=== PATIENT | male | born 1960 | race Caucasian/White ===

== ENCOUNTER 2017-01-30 13:50 | Emergency (ER) | payer OTHER ==
[~2017-01-30] VITALS: Ht 188 cm; Wt 137.2 kg
[~2017-01-30 13:50] MED LIST: BETH25TA PO; CIAL20TA PO; HUMA100I SC; HYDR-2768 PO; HYZA100T2 PO; LANTUSP SQ; MECL-62 PO; METO10TA PO
[2017-01-30 14:15] VITALS: BP 132/87; PULSE 94; RESP 16; TEMP 98.7; O2SAT 96
[2017-01-30] MEDS ORDERED: MECL-62 PO (14:28)
[2017-01-30] MEDS ORDERED: LOSA100T3 PO (14:28)
[2017-01-30] MEDS ORDERED: CIAL20TA PO (14:28)
[2017-01-30] MEDS ORDERED: HUMALOG SQ (14:28)
[2017-01-30] MEDS ORDERED: LEVEMIR SQ (14:28)
--- NOTE | 2017-01-30 14:29 | PD ---
HPI Chief Complaint: Skin Problem Time Seen by Provider: 14:25 Travel History International Travel<30 days: No Contact w/Intl Traveler<30days: No Traveled to known affect area: No History of Present Illness HPI Patient comes in for evaluation of skin infection he first noticed 2 days ago. Patient states that he is uncertain what caused it and he just noticed it when he reached down feeling something on his leg. Patient reports associated pain with this that is a burning/stretching pain. Denies any radiation. Denies anything making it better. Patient states seems to be getting bigger. Patient has been cleaning it with rubbing alcohol as well as put [id number] antibiotic ointment on this. Denies any fevers. PFSH Past Medical History Arthritis: No Asthma: No Autoimmune Disease: No Blood Disorders: No Heart Rhythm Problems: Yes Cancer: No Cardiovascular Problems: Yes (PERIPHERAL EDEMA) Chest Pain: Yes COPD: No Diabetes: Yes (METFORMIN AND INSULIN;TRULICITY) Diminished Hearing: No Gastrointestinal Disorders: No Glaucoma: No Genitourinary: Yes Hypertension: No Immune Disorder: No Implanted Vascular Access Dvce: No Kidney Stones: Yes Musculoskeletal: Yes Neurologic: No Psychiatric: No Respiratory: No Sleep Apnea: No Past Surgical History Abdominal Surgery: Yes (INGUINAL HERNIA REPAIR) Cardiac Surgery: No Cholecystectomy: Yes Ear Surgery: No Endocrine Surgery: No Eye Surgery: No Genitourinary Surgery: No Gynecologic Surgery: No Neurologic Surgery: Yes (BACK SURGERY DISCECTOMY) Oral Surgery: No Thoracic Surgery: No Other Surgery: Yes Social History Alcohol Use: No Tobacco Use: No Substance Use: No Allergies-Medications (Allergen,Severity, Reaction): Coded Allergies: No Known Allergies (Verified , 01/30/17) Reported Meds & Prescriptions Reported Meds & Active Scripts Active Cipro (Ciprofloxacin HCl) 500 Mg Tab 500 Mg PO BID 7 Days Bactrim DS (Sulfamethoxazole-Trimethoprim) 800-160 Mg Tab 1 Tab PO BID Reported Meclizine (Meclizine HCl) 25 Mg Tab 25 Mg PO TID PRN Cialis (Tadalafil) 20 Mg Tab 20 Mg PO DAILY PRN Do not exceed 1 dose/day. Losartan-Hydrochlorothiazide 100-12.5 Mg Tab 1 Tab PO DAILY Levemir Inj (Insulin Detemir) 1,000 unit/ 10 ML Vial 20 Units SQ BID Do not mix with any other Insulin. Humalog Inj (Insulin Human Lispro) 1,000 Unit/10 Ml Vial 20 Units SQ ACHS Max dose at bedtime:( )units; sugars < 70,(0)units; sugars 150-199,(2)units; sugars 200-249,(4)units; sugars 250-299,(7)units; sugars 300-349,(10)units; sugars more than 349,(12)units. Review of Systems Except as stated in HPI: all other systems reviewed are Neg Physical Exam Narrative GENERAL: Well-developed, overly nourished, in no acute distress, and non-ill appearing. SKIN: Approximately 3 x 1 cm area cellulitis left lower leg distally anterior aspect. It is blanching and without induration, fluctuation, or crepitus. There is no drainage. It is febrile to palpation. HEAD: Atraumatic. Normocephalic. EYES: Pupils equal and round. EOMI. No scleral icterus. No injection or drainage. ENT: No nasal bleeding or discharge. Mucous membranes pink and moist. NECK: Trachea midline. Supple. No nuclear rigidity. RESPIRATORY: No accessory muscle use. No respiratory distress. MUSCULOSKELETAL: No obvious deformities. No clubbing. No cyanosis. Full range of motion. NEUROLOGICAL: Awake and alert. No obvious cranial nerve deficits. Motor grossly within normal limits. Normal speech. PSYCHIATRIC: Appropriate mood and affect; insight and judgment normal. Data Data Last Documented VS Vital Signs Date Time Temp Pulse Resp B/P Pulse Ox O2 Delivery O2 Flow Rate FiO2 01/30/17 14:15 98.7 94 16 132/87 96 MDM Medical Decision Making Medical Screen Exam Complete: Yes Emergency Medical Condition: Yes Differential Diagnosis Abscess, cellulitis, venous stasis ulcer, other Narrative Course The patient has cellulitis. Area was outlined with skin marker. There is no evidence of necrotizing fasciitis at this time. There is no evidence of abscess. There is no evidence of local joint space involvement. There is no evidence of deep venous thrombosis. The patient will be discharged on antibiotics. The patient was given signs and symptoms warnings for worsening infection, such as spreading of redness, increasing pain, and/or swelling, associated heat, or fever and instructed to return immediately if these signs or symptoms worsen. The patient is to follow up with physician in 2 days for recheck or return here in 2 days for recheck if unable to establish outpatient follow up. Sooner if worsens or as needed. The patient agrees with plan. Patient in no obvious distress upon re-evaluation. Patient was asked if they wanted to speak to my attending, which the patient did not wish to do at this time. Any questions/concerns in reference to patient diagnosis/condition discussed and clarified prior to patient's discharge. Reinforced sheer importance of close follow up with patient's primary physician or primary care clinic. Instructed patient to return to ED immediately, if symptoms return/ worsen. Pt showed understanding of above instructions. Further instructions and recommendations were detailed in discharge paperwork. Pt ambulated without difficulty out of ED at discharge. Diagnosis Primary Impression: Cellulitis Qualified Code: L03.116 - Cellulitis of left lower extremity Patient Instructions: Cellulitis (ED), General Instructions Additional Instructions: Follow-up with your primary care physician or return here in 2 days for recheck. Take all medication as prescribed. Keep wound dry and clean as possible using soap and water. Return to the emergency department if symptoms get worse. Med/Other Pt SpecificInfo: Prescription(s) given Scripts Ciprofloxacin (Cipro)500 Mg Lsl009 Mg PO BID 7 Days Ref 0 Prov:Maren Haque MD 01/30/17 Sulfamethoxazole-Trimethoprim (Bactrim DS)800-160 Mg Tab1 Tab PO BID #20 TAB Ref 0 Prov:Maren Haque MD 01/30/17 Disposition: 01 DISCHARGE HOME Condition: Stable Miles Carter Jan 30, 2017 14:29
[2017-01-30] MEDS ORDERED: BACT800T5 PO (14:30)
[2017-01-30] MEDS ORDERED: CIPR-9 PO (14:30)
== END 2017-01-30 14:41 | disposition home or self-care (01) ==
LOC: PHEFT 13:50
DX: L03.116 Cellulitis of left lower limb (principal); E11.9 Type 2 diabetes mellitus without complications; Z79.4 Long term (current) use of insulin
CPT/HCPCS: 99283

== ENCOUNTER 2018-02-19 12:11 | Emergency (ER) | payer OTHER ==
[~2018-02-19] VITALS: Ht 188 cm; Wt 132.5 kg
[~2018-02-19 12:11] MED LIST changes: +BACT800T5 PO; -BETH25TA PO; +CIPR-9 PO; -HUMA100I SC; +HUMALOG SQ; -HYDR-2768 PO; -HYZA100T2 PO; -LANTUSP SQ; +LEVEMIR SQ; +LOSA100T3 PO; -METO10TA PO
[2018-02-19 12:25] VITALS: BP 124/68; PULSE 95; RESP 16; TEMP 99.3; O2SAT 98
[2018-02-19] MEDS ORDERED: CANA300T PO (12:46)
[2018-02-19] MEDS ORDERED: KETOROLAC TROMETHAMINE 60 MG/2 ML (IM) VIAL IM ONE (13:30)
[2018-02-19] MEDS ORDERED: DIAZEPAM 5 MG TAB PO ONE (13:30)
--- NOTE | 2018-02-19 14:05 | PD ---
HPI Chief Complaint: Back/ Neck Pain or Injury Time Seen by Provider: 12:37 Travel History International Travel<30 days: No Contact w/Intl Traveler<30days: No Traveled to known affect area: No History of Present Illness HPI This is a 58-year-old male here with low back pain times approximately 1 week. 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 Since that time he has had intermittent spasming type pain which is worsened over the last 3-4 days. Pain is localized to the right low back radiating into the buttocks and thigh. He denies incontinence. No saddle anesthesia. No fever chills. No paresthesia or weakness of the extremities. Pain is worse with twisting of the torso and standing erect. Slightly relieved with bending forward. PFSH Past Medical History Hx Anticoagulant Therapy: Yes (ASA 81mg ) Arthritis: No Asthma: No Autoimmune Disease: Yes (hypogammaglobulin aemia CVID) Blood Disorders: No Heart Rhythm Problems: Yes Cancer: No Cardiovascular Problems: Yes (PERIPHERAL EDEMA) Chest Pain: Yes COPD: No Diabetes: Yes (type 2 ) Patient Takes Glucophage: No Diminished Hearing: No Gastrointestinal Disorders: No Glaucoma: No Genitourinary: Yes Hypertension: No Immune Disorder: No Implanted Vascular Access Dvce: No Kidney Stones: Yes Musculoskeletal: Yes Neurologic: No Psychiatric: No Respiratory: No Sleep Apnea: No Tetanus Vaccination: Unknown Influenza Vaccination: Yes ?: Not Past Surgical History Abdominal Surgery: Yes (INGUINAL HERNIA REPAIR) Cardiac Surgery: No Cholecystectomy: Yes Ear Surgery: No Endocrine Surgery: No Eye Surgery: No Genitourinary Surgery: No Gynecologic Surgery: No Neurologic Surgery: Yes (BACK SURGERY DISCECTOMY) Oral Surgery: No Thoracic Surgery: No Other Surgery: Yes Social History Alcohol Use: No Tobacco Use: No Substance Use: No Allergies-Medications (Allergen,Severity, Reaction): Coded Allergies: No Known Allergies (Verified Adverse Reaction, Unknown, 02/19/18) Reported Meds & Prescriptions Reported Meds & Active Scripts Active Reported Invokana (Canagliflozin) 300 Mg Tab 300 Mg PO DAILY Take before 1st meal of day. Meclizine (Meclizine HCl) 25 Mg Tab 25 Mg PO TID PRN Losartan-Hydrochlorothiazide 100-12.5 Mg Tab 1 Tab PO DAILY Levemir Inj (Insulin Detemir) 1,000 unit/ 10 ML Vial 20 Units SQ BID Do not mix with any other Insulin. Humalog Inj (Insulin Human Lispro) 1,000 Unit/10 Ml Vial 20 Units SQ ACHS Max dose at bedtime:( )units; sugars < 70,(0)units; sugars 150-199,(2)units; sugars 200-249,(4)units; sugars 250-299,(7)units; sugars 300-349,(10)units; sugars more than 349,(12)units. Review of Systems Except as stated in HPI: all other systems reviewed are Neg General / Constitutional: No: Fever Eyes: No: Visual changes HENT: No: Headaches Cardiovascular: No: Chest Pain or Discomfort Respiratory: No: Shortness of Breath Gastrointestinal: No: Abdominal Pain Genitourinary: No: Dysuria Physical Exam Narrative GENERAL: Alert and well-appearing 58-year-old male. Patient in no distress. SKIN: Warm and dry. HEAD: Normocephalic. EYES: No injection or drainage. NECK: Supple CARDIOVASCULAR: Regular rate and rhythm. No murmur appreciated RESPIRATORY: Breath sounds equal bilaterally. No accessory muscle use. GASTROINTESTINAL: Abdomen soft, non-tender, nondistended. MUSCULOSKELETAL: No cyanosis. Bilateral lower extremity edema which patient reports is chronic. Normal strength and sensation in the lower extremities. Patient ambulates with a steady gait. BACK: + Tenderness to the right paravertebral musculature and over the right SI joint. Without obvious deformity. No CVA tenderness. Data Data Last Documented VS Vital Signs Date Time Temp Pulse Resp B/P (MAP) Pulse Ox O2 Delivery O2 Flow Rate FiO2 02/19/18 12:25 99.3 95 16 124/68 (86) 98 Orders Orders Spine, Lumbar - Ltd (Ap & Lat) (02/19/18 ) Ketorolac Inj (Toradol Inj) (02/19/18 13:30) Diazepam (Valium) (02/19/18 13:30) MDM Medical Decision Making Medical Screen Exam Complete: Yes Emergency Medical Condition: Yes Differential Diagnosis Lumbar strain, lumbar fracture, herniated disc, sciatica Narrative Course This is a 58-year-old male with right sided low back pain radiating into the buttocks and thigh. He has a normal neurologic exam. He was given a shot of Toradol and oral Valium. X-ray of lumbar spine is negative for fracture. He reports symptom improvement. He is to follow-up with spinal surgeon. Return precautions discussed. Diagnosis Primary Impression: Lumbar strain Qualified Codes: S39.012A - Strain of muscle, fascia and tendon of lower back , initial encounter Referrals: Austin Mcgovern MD Additional Instructions: Medication as directed. Follow-up with orthopedic for recheck. Return if he develop new or worsening symptoms. Scripts Tramadol (Ultram) 50 Mg Tab 50 MG PO Q6H Y for PAIN, #10 TAB 0 Refills Prov: Mali Laureano 02/19/18 Methocarbamol (Robaxin) 750 Mg Tab 750 MG PO QID for Muscle Spasm, #12 TAB 0 Refills Prov: Mali Laureano 02/19/18 Ketorolac (Ketorolac) 10 Mg Tab 10 MG PO Q6HR Y for PAIN for 3 Days, TAB 0 Refills Prov: Mali Laureano 02/19/18 Disposition: 01 DISCHARGE HOME Condition: Stable Mali Laureano February 19, 2018 14:05
--- NOTE | 2018-02-19 14:06 | RADRPT ---
EXAM DATE/TIME: 02/19/2018 13:38 [facility] COMPARISON: No previous studies available for comparison. INDICATIONS : Low back pain for 1 week increasing in severity, no known injury MEDICAL HISTORY : Diabetes mellitus type II. SURGICAL HISTORY : Spinal ENCOUNTER: Initial ACUITY: 1 week PAIN SCORE: 7/10 LOCATION: Bilateral low back FINDINGS: One degenerative changes of cervical spine with loss of disc space height at L1-2, L4-5 and L5-S1. M oderate anterior osteophytes are present. Minimal loss of vertebral body height at T12. Mild spinal stenosis lower lumbar spine. CONCLUSION: Degenerative changes as described above. Lumbar spinal stenosis would be consideration Vincenzo Givens MD FACR on February 19, 2018 at 14:03 Board Certified Radiologist. This report was verified electronically.
[2018-02-19] MEDS ORDERED: TRAM50 PO (14:36)
[2018-02-19] MEDS ORDERED: KETO10 PO (14:36)
[2018-02-19] MEDS ORDERED: ROBA750T PO (14:36)
--- NOTE | 2018-02-19 16:17 | PD ---
Physical Exam Narrative Please see mid-level provider's note for full history, physical disposition I have seen and evaluated this patient. Presented complaining of intermittent right low back pain 3-4 days. Patient has a history of sciatica. Presented to the emergency department with back pain. Was afebrile and vital signs were stable. X-rays were negative for any acute fracture,dislocation, but positive for degenerative change. Patient received muscle relaxer and pain medication. Was discharged with pain medication and muscle relaxer and orthopedic referral for follow-up. Data Data Last Documented VS Vital Signs Date Time Temp Pulse Resp B/P (MAP) Pulse Ox O2 Delivery O2 Flow Rate FiO2 02/19/18 12:25 99.3 95 16 124/68 (86) 98 Orders Orders Spine, Lumbar - Ltd (Ap & Lat) (02/19/18 ) Ketorolac Inj (Toradol Inj) (02/19/18 13:30) Diazepam (Valium) (02/19/18 13:30) MDM Supervised Visit with LORRIE: Yes Diagnosis Primary Impression: Lumbar strain Qualified Codes: S39.012A - Strain of muscle, fascia and tendon of lower back , initial encounter Referrals: Austin Mcgovern MD Patient Instructions: General Instructions, Low Back Strain (ED) Departure Forms: Tests/Procedures Additional Instruction: Medication as directed. Follow-up with orthopedic for recheck. Return if he develop new or worsening symptoms. Scripts Tramadol (Ultram) 50 Mg Tab 50 MG PO Q6H Y for PAIN, #10 TAB 0 Refills Prov: Mali Laureano SALES DRIVER 02/19/18 Methocarbamol (Robaxin) 750 Mg Tab 750 MG PO QID for Muscle Spasm, #12 TAB 0 Refills Prov: Mali Laureano SALES DRIVER 02/19/18 Ketorolac (Ketorolac) 10 Mg Tab 10 MG PO Q6HR Y for PAIN for 3 Days, TAB 0 Refills Prov: Mali LaureanoP 02/19/18 Disposition: 01 DISCHARGE HOME Condition: Stable Madina Blackwell MD February 19, 2018 16:16
== END 2018-02-19 14:48 | disposition home or self-care (01) ==
LOC: PHEFT 12:11
DX: S39.012A Strain of muscle, fascia and tendon of lower back, initial encounter (principal); X58.XXXA Exposure to other specified factors, initial encounter; E11.9 Type 2 diabetes mellitus without complications
CPT/HCPCS: 72100; 96372; 99283; J1885